=== PATIENT | female | born 1980 | race American Indian/Alaskan Native ===

== ENCOUNTER 2018-08-17 12:28 | Emergency (ER) | payer OTHER ==
--- NOTE | 2018-08-17 13:03 | Emergency Department Report ---
Chief Complaint: Chest Pain Stated Complaint: CHEST PAIN/TROY Time Seen by Provider: 08/17/18 12:59 - HPI History of Present Illness: pt presents with left sided CP under the left breast that began a week ago states it is a intermittent sharp pain (+) SOB and cough no N/V recent long trip for 9 hours PMHx hypothyroid, pseudotumor cerebri, HLD hx of rheumatic fever as a child hx of grandmother hx of CAD MSE screening note: Focused history and physical exam performed. Due to findings the following was ordered: CXR, EKG, labs ED Disposition for MSE Condition: Stable
[2018-08-17 13:28] LABS: Basophils % (Auto) 0.7 % (0.0-1.8); Eosinophils # (Auto) 0.3 K/mm3 (0.0-0.4); Eosinophils % (Auto) 5.4 % (0.0-4.3); Hematocrit 37.3 % (30.3-42.9); Hemoglobin 12.7 gm/dl (10.1-14.3); Lymphocytes # (Auto) 2.1 K/mm3 (1.2-5.4); Lymphocytes % (Auto) 35.7 % (13.4-35.0); Mean Corpuscular HGB Conc 34 % (30-34); Mean Corpuscular Volume 88 fl (79-97); Monocytes # (Auto) 0.4 K/mm3 (0.0-0.8); Platelet Count 258 K/mm3 (140-440); Red Blood Count 4.26 M/mm3 (3.65-5.03); Red Cell Distribution Width 14.9 % (13.2-15.2)
[2018-08-17 13:42] LABS: INR 1.02 (0.87-1.13)
[2018-08-17 13:43] LABS: Partial Thromboplastin Time 28.7 Sec. (24.2-36.6)
[2018-08-17 13:53] LABS: Alanine Aminotransferase 15 units/L (7-56); Albumin 3.7 g/dL (3.9-5); BUN/Creatinine Ratio 18; Blood Urea Nitrogen 11 mg/dL (7-17); Calcium 8.7 mg/dL (8.4-10.2); Hemolysis Index 7
--- NOTE | 2018-08-17 14:00 | Emergency Department Report ---
HPI - General Chief Complaint: Chest Pain Time Seen by Provider: 08/17/18 12:59 - HPI HPI: 38 y.o male with chest pain on and off for the past two days. no n/v. no sob, chills or night sweats. has not taken any meds for symptoms. denies any alleviating or exacerbating factors. ED Past Medical Hx - Past Medical History Additional medical history: hypothyroidism, elevated cholesterol,psuedo tumor - Surgical History Past Surgical History?: No - Social History Smoking Status: Never Smoker Substance Use Type: None - Medications Home Medications: Home Medications Medication Instructions Recorded Confirmed Last Taken Type Aspirin 81 mg PO DAILY #30 tab.chew 08/17/18 Unknown Rx Pantoprazole [Protonix] 40 mg PO QDAY #30 tablet 08/17/18 Unknown Rx ED Review of Systems ROS: Stated complaint: CHEST PAIN/TROY Other details as noted in HPI Comment: All other systems reviewed and negative Eyes: denies: eye pain ENT: denies: ear pain Respiratory: denies: cough Cardiovascular: chest pain. denies: palpitations, dyspnea on exertion Gastrointestinal: denies: abdominal pain, nausea, vomiting Physical Exam - Physical Exam Vital Signs: Vital Signs 08/17/18 13:00 Temperature 97.9 F Pulse Rate 81 Respiratory 18 Rate Blood Pressure 135/67 O2 Sat by Pulse 100 Oximetry Physical Exam: ED Physical Exam - General Limitations: No Limitations General appearance: alert, in no apparent distress - Head Head exam: Present: atraumatic, normocephalic - Eye Eye exam: Present: normal appearance - ENT ENT exam: Present: mucous membranes moist - Neck Neck exam: Present: normal inspection - Respiratory Respiratory exam: Present: normal lung sounds bilaterally. Absent: respiratory distress - Cardiovascular Cardiovascular Exam: Present: regular rate, normal rhythm. Absent: systolic murmur, diastolic murmur, rubs, gallop - GI/Abdominal GI/Abdominal exam: Present: soft, normal bowel sounds. Absent: tenderness, rebound, bruit, hernia - Rectal Rectal exam: Present: deferred - Extremities Exam Extremities exam: Present: normal inspection, full ROM - Back Exam Back exam: Present: normal inspection, full ROM. Absent: tenderness, CVA tenderness (R), CVA tenderness (L), muscle spasm, paraspinal tenderness, vertebral tenderness, rash noted - Neurological Exam Neurological exam: Present: alert, oriented X3, CN II-XII intact, normal gait, reflexes normal - Psychiatric Psychiatric exam: Present: normal affect, normal mood - Skin Skin exam: Present: warm, dry, intact, normal color. Absent: rash ED Course Vital Signs 08/17/18 13:00 Temperature 97.9 F Pulse Rate 81 Respiratory 18 Rate Blood Pressure 135/67 O2 Sat by Pulse 100 Oximetry ED Medical Decision Making - Lab Data Result diagrams: 08/17/18 13:15 08/17/18 13:15 Critical care attestation.: If time is entered above; I have spent that time in minutes in the direct care of this critically ill patient, excluding procedure time. ED Disposition Clinical Impression: Chest pain Qualifiers: Chest pain type: unspecified Qualified Code(s): R07.9 - Chest pain, unspecified Disposition: DC- TO HOME OR SELFCARE Is pt being admited?: No Does the pt Need Aspirin: No Condition: Stable Instructions: Chest Pain (ED) Prescriptions: Aspirin 81 mg PO DAILY #30 tab.chew Pantoprazole [Protonix] 40 mg PO QDAY #30 tablet Referrals: BEATRIZ OWUSU MD [Staff Physician] - 3-5 Days [place] KETURAH KARIMI MD [Primary Care Provider] - 3-5 Days
--- NOTE | 2018-08-17 15:14 | XRay Report ---
ROUTINE CHEST, TWO VIEWS: HISTORY: chest pain. The trachea, heart, mediastinal contour, lung woody and bony thorax are unremarkable. IMPRESSION: Unremarkable chest x-ray.
--- NOTE | 2018-08-17 16:43 | Cat Scan Report ---
PROCEDURE: CT angiogram chest with contrast. TECHNIQUE: Computerized tomographic angiography of the chest was performed after the IV injection of iodinated nonionic contrast including image processing. The image data was postprocessed using 2-di mensional multiplanar reformatted (MPR) and 3-dimensional (MIP and/or volume rendered) techniques. Au tomated exposure control, adjustment of mA and/or kV according to patient size, or iterative reconstr uction dose optimization techniques were utilized. CT DOSE LENGTH PRODUCT: 946.30 mGycm HISTORY: Chest pain, elevated d-dimer. COMPARISONS: None. FINDINGS: The trachea and central bronchi appear normal. The lungs are clear and well expanded. There are no pl eural effusions. The thoracic aorta has a normal caliber without evidence of dissection. The pulmonar y arteries enhance normally. There are no filling defects to indicate pulmonary embolism. There is no mediastinal adenopathy. The heart size is normal. The thoracic skeleton appears intact. IMPRESSION: Normal study. This document is electronically signed by Billy Caraballo MD., August 17 2018 04:41:39 PM ET
[2018-08-18 19:02] VITALS: BP 135/67
== END 2018-08-17 17:05 | disposition home or self-care (01) ==
LOC: ED 12:28
DX: R07.89 Other chest pain (principal); E78.00 Pure hypercholesterolemia, unspecified; E03.9 Hypothyroidism, unspecified
CPT/HCPCS: 36415; 71046; 71275; 80053; 84484; 84703; 85025; 85379; 85610; 85730; 93005; 93010; 99284; Q9967

== ENCOUNTER 2018-11-26 23:51 | Emergency (ER) | payer MEDICAID, OTHER ==
[2018-11-27 00:05] VITALS: BP 129/69
[2018-11-27] MEDS ORDERED: NACL 0.9% 1000 ML 1,000 ML IV ONE (01:15)
[2018-11-27] MEDS ORDERED: ZOFRAN IV ONE (01:15)
[2018-11-27] MEDS ORDERED: MORPHINE IV ONE (01:15)
[2018-11-27 01:41] LABS: Basophils % (Auto) 0.8 % (0.0-1.8); Eosinophils # (Auto) 0.5 K/mm3 (0.0-0.4); Eosinophils % (Auto) 7.9 % (0.0-4.3); Hematocrit 38.7 % (30.3-42.9); Hemoglobin 12.9 gm/dl (10.1-14.3); Lymphocytes % (Auto) 31.4 % (13.4-35.0); Mean Corpuscular HGB Conc 33 % (30-34); Mean Corpuscular Volume 89 fl (79-97); Monocytes # (Auto) 0.5 K/mm3 (0.0-0.8); Monocytes % (Auto) 8.4 % (0.0-7.3); Platelet Count 243 K/mm3 (140-440); Red Blood Count 4.35 M/mm3 (3.65-5.03); Red Cell Distribution Width 14.9 % (13.2-15.2)
[2018-11-27 02:04] LABS: Alanine Aminotransferase 13 units/L (7-56); Albumin 3.8 g/dL (3.9-5); Bilirubin,Direct 0.2 mg/dL (0-0.2); Calcium 8.9 mg/dL (8.4-10.2); Hemolysis Index 7
[2018-11-27 02:23] LABS: BUN/Creatinine Ratio 16; Blood Urea Nitrogen 11 mg/dL (7-17)
--- NOTE | 2018-11-27 02:28 | XRay Report ---
LEFT SHOULDER 3 VIEWS INDICATION / CLINICAL INFORMATION: Left shoulder pain. COMPARISON: None available. FINDINGS: BONES and JOINT(S): No acute fracture or subluxation. No significant arthritis. SOFT TISSUES: No significant abnormality. ADDITIONAL FINDINGS: None. IMPRESSION: No acute findings. Signer Name: Ignacio Petit MD Signed: 11/27/2018 2:24 AM Workstation Name: [id number]
--- NOTE | 2018-11-27 03:01 | Emergency Department Report ---
ED General Adult HPI - General Chief complaint: Pain General Stated complaint: PAIN IN LT ROTATOR CUFF HEAD PAIN NVF Time Seen by Provider: 11/27/18 00:33 Source: patient Mode of arrival: Ambulatory Limitations: No Limitations - History of Present Illness Initial comments: This is a 38-year-old female nontoxic, well nourished in appearance, no acute signs of distress presents to the ED with c/o of acute headache, nausea, vomiting, left shoulder pain, and generalized body aches. Patient denies any cough. Staetd has nasal congestion. Patient describes headache as diffuse with level of 3 out of 10. Patient denies thunderclap headache. Patient denies any radiation of pain. Patient denies any head trauma. Patient denies any visual changes. Patient denies worse headache. Patient describes vomiting as food content. Patient denies any diarrhea or constipation. Patient denies any numbness, tingling, fever, chills, abdominal pain, chest pain, shortness of breath, stiff neck. Patient denies facial drooping or one sided weakness. Denies any urinary symptoms. Patient denies any radiation of pain. Patient denies any allergies. Patient stated has history of RA. -: days(s) Location: head, upper extremity Radiation: non-radiation Severity scale (0 -10): 8 Quality: aching Consistency: constant Improves with: none Worsens with: none Associated Symptoms: headaches, nausea/vomiting. denies: confusion, chest pain, cough, diaphoresis, fever/chills, loss of appetite, malaise, rash, seizure, shortness of breath, syncope, weakness Treatments Prior to Arrival: none - Related Data Previous Rx's Medication Instructions Recorded Last Taken Type Aspirin 81 mg PO DAILY #30 tab.chew 08/17/18 Unknown Rx Pantoprazole [Protonix] 40 mg PO QDAY #30 tablet 08/17/18 Unknown Rx Acetaminophen/Codeine [Tylenol 1 tab PO Q6H PRN #12 tab 11/27/18 Unknown Rx /Codeine # 3 tab] Amoxicillin/K Clav Tab [Augmentin 1 tab PO Q12HR #20 tab 11/27/18 Unknown Rx 875 mg] Ondansetron [Zofran Odt] 4 mg PO Q8HR PRN #20 tab.rapdis 11/27/18 Unknown Rx Allergies Allergy/AdvReac Type Severity Reaction Status Date / Time No Known Allergies Allergy Unverified 11/27/18 00:05 ED Review of Systems ROS: Stated complaint: PAIN IN LT ROTATOR CUFF HEAD PAIN NVF Other details as noted in HPI Constitutional: denies: chills, fever Eyes: denies: eye pain, eye discharge, vision change ENT: denies: ear pain, throat pain Respiratory: denies: cough, shortness of breath, wheezing Cardiovascular: denies: chest pain, palpitations Endocrine: no symptoms reported Gastrointestinal: nausea, vomiting. denies: abdominal pain, diarrhea Genitourinary: denies: urgency, dysuria, discharge Musculoskeletal: arthralgia. denies: back pain, joint swelling Skin: denies: rash, lesions Neurological: headache. denies: weakness, paresthesias Psychiatric: denies: anxiety, depression Hematological/Lymphatic: denies: easy bleeding, easy bruising ED Past Medical Hx - Past Medical History Previous Medical History?: Yes Additional medical history: hypothyroidism, elevated cholesterol,psuedo tumor - Surgical History Past Surgical History?: No - Social History Smoking Status: Never Smoker Substance Use Type: None - Medications Home Medications: Home Medications Medication Instructions Recorded Confirmed Last Taken Type Aspirin 81 mg PO DAILY #30 tab.chew 08/17/18 Unknown Rx Pantoprazole [Protonix] 40 mg PO QDAY #30 tablet 08/17/18 Unknown Rx Acetaminophen/Codeine [Tylenol 1 tab PO Q6H PRN #12 tab 11/27/18 Unknown Rx /Codeine # 3 tab] Amoxicillin/K Clav Tab [Augmentin 1 tab PO Q12HR #20 tab 11/27/18 Unknown Rx 875 mg] Ondansetron [Zofran Odt] 4 mg PO Q8HR PRN #20 tab.rapdis 11/27/18 Unknown Rx ED Physical Exam - General Limitations: No Limitations General appearance: alert, in no apparent distress - Head Head exam: Present: atraumatic, normocephalic - Eye Eye exam: Present: normal appearance - Neck Neck exam: Present: normal inspection, full ROM. Absent: tenderness, menin gismus, lymphadenopathy - Respiratory Respiratory exam: Present: normal lung sounds bilaterally. Absent: respiratory distress, wheezes, rales, rhonchi, stridor, chest wall tenderness, accessory muscle use, decreased breath sounds, prolonged expiratory - Cardiovascular Cardiovascular Exam: Present: regular rate, normal rhythm, normal heart sounds. Absent: bradycardia, tachycardia, irregular rhythm, systolic murmur, diastolic murmur, rubs, gallop - GI/Abdominal GI/Abdominal exam: Present: soft, normal bowel sounds. Absent: distended, tenderness, guarding, rebound, rigid, diminished bowel sounds - Extremities Exam Extremities exam: Present: normal inspection, full ROM, normal capillary refill. Absent: tenderness - Expanded Upper Extremity Exam Left General: Present: normal inspection Shoulder Exam: Present: normal inspection, full ROM. Absent: tenderness, swelling, abrasion, laceration, ecchymosis, deformity, crepidus, dislocation, erythema, tenderness over AC joint Upper Arm exam: Present: normal inspection, full ROM. Absent: tenderness, swelling Elbow exam: Present: normal inspection, full ROM. Absent: tenderness, swelling Forearm Wrist exam: Present: normal inspection, full ROM. Absent: tenderness, swelling Hand Wrist exam: Present: normal inspection, full ROM. Absent: tenderness, swelling Vascular: Present: vascular compromise, normal capillary refill - Back Exam Back exam: Present: normal inspection, full ROM. Absent: tenderness, CVA tenderness (R), CVA tenderness (L), muscle spasm, paraspinal tenderness, vertebral tenderness, rash noted - Neurological Exam Neurological exam: Present: alert, oriented X3, normal gait - Expanded Neurological Exam Expanded Patient oriented to: Present: person, place, time Cranial nerves: EOM's Intact: Normal, Facial Sensation: Normal Upper motor neuron: Sensory Extinction: Normal Motor strength exam: RUE: 5, LUE: 5, RLE: 5, LLE: 5 Best Eye Response ([place]): (4) open spontaneously Best Motor Response ([place]): (6) obeys commands Best Verbal Response ([place]): (5) oriented [place] Total: 15 - Psychiatric Psychiatric exam: Present: normal affect, normal mood - Skin Skin exam: Present: warm, dry, intact, normal color. Absent: rash - Other Other exam information: Positive frontal sinus tenderness. ED Course Vital Signs 11/27/18 00:03 Temperature 98.6 F Pulse Rate 79 Respiratory 16 Rate Blood Pressure 129/69 O2 Sat by Pulse 100 Oximetry - Reevaluation(s) Reevaluation #1: 11/27/18 03:07 Patient is speaking in full sentences with no signs of distress noted. ED Medical Decision Making - Lab Data Result diagrams: 11/27/18 01:09 11/27/18 01:27 - Medical Decision Making This is a 38-year-old female that presents with sinusitis, n/v, generlized, body aches from RA flareup, and left shoulder strain. Patient is stable and was examined by me. There is no abdominal tenderness. Negative signs of symptoms of appendicitis. Labs obtained. UA obtained. CT of abdomen and head/brain obtained and dictated by the radiologist and dictated by the radiologist within normal limits. Xray of left shoulder obainted and dictated by the radiologist within normal limits. Patient is notified of the report with no questions noted by the patient. Vital signs are stable prior to discharge. Patient received medical treatment in the ED which patient stated symptoms has resovled and subsided. Was instructed note to operate any machinery due to possible drowsiness and stated someone will drive the patient home. A by mouth challenge has been obtained and patient tolerated well with no nausea vomiting. Patient was also instructed to Follow-up with a primary care doctor in 3-5 days or if symptoms worsen and continue return to emergency room as soon as possible. At time of discharge, the patient does not seem toxic or ill in appearance. No acute signs of distress noted. Patient agrees to discharge treatment plan of care. No further questions noted by the patient. Critical care attestation.: If time is entered above; I have spent that time in minutes in the direct care of this critically ill patient, excluding procedure time. ED Disposition Clinical Impression: Generalized body aches Headache Qualifiers: Headache type: unspecified Headache chronicity pattern: acute headache Intractability: not intractable Qualified Code(s): R51 - Headache Left shoulder strain Qualifiers: Encounter type: initial encounter Qualified Code(s): S46.912A - Strain of unspecified muscle, fascia and tendon at shoulder and upper arm level, left arm, initial encounter Nausea & vomiting Qualifiers: Vomiting type: unspecified Vomiting Intractability: non-intractable Qualified C ode(s): R11.2 - Nausea with vomiting, unspecified Sinusitis Qualifiers: Sinusitis location: unspecified location Chronicity: acute Recurrence: non- recurrent Qualified Code(s): J01.90 - Acute sinusitis, unspecified Disposition: TO HOME OR SELFCARE Is pt being admited?: No Does the pt Need Aspirin: No Condition: Stable Instructions: Acetaminophen/Codeine (By mouth), Acute Headache (ED), Acute Nausea and Vomiting (ED), Sinusitis (ED) Additional Instructions: Follow-up with a primary care doctor in 3-5 days or if symptoms worsen and continue return to emergency room as soon as possible. Do not operate any machinery while taking Tylenol with codeine as this may cause drowsiness. Prescriptions: Amoxicillin/K Clav Tab [Augmentin 875 mg] 1 tab PO Q12HR #20 tab Acetaminophen/Codeine [Tylenol /Codeine # 3 tab] 1 tab PO Q6H PRN #12 tab PRN Reason: Pain , Severe (7-10) Ondansetron [Zofran Odt] 4 mg PO Q8HR PRN #20 tab.rapdis PRN Reason: Nausea Referrals: MEG GONZALEZ MD [Primary Care Provider] - 3-5 Days PRIMARY CAREMD [Referring] - 3-5 Days DARIN SIMON MD [Staff Physician] - 3-5 Days [facility] [place] [Outside] - 3-5 Days [facility] [Outside] - 3-5 Days Forms: Work/School Release Form(ED)
--- NOTE | 2018-11-27 03:45 | Cat Scan Report ---
CT HEAD WITHOUT CONTRAST INDICATION : Headache since Friday with congestion. TECHNIQUE: Axial, coronal and sagittal CT imaging was performed from the skull apex through the skul l base without contrast. All CT scans at this location are performed using CT dose reduction for ALA RA by means of automated exposure control. COMPARISON: None available. FINDINGS: PARENCHYMA: No mass, midline shift, hemorrhage, extraaxial collection or acute territorial infarctio n. VENTRICLES: Symmetric and normal in size. SOFT TISSUES: Soft tissues including the orbits appear normal. BONES: No acute osseous abnormality. SINUSES: There is mild to moderate mucosal thickening along the ethmoid air cells with a small air-fl uid level in the right maxillary sinus. The sinuses are otherwise clear. The mastoid air cells are pa tent. ADDITIONAL FINDINGS: None. IMPRESSION: 1. No acute intracranial abnormality. 2. Sinusitis as above. Signer Name: Ignacio Petit MD Signed: 11/27/2018 3:41 AM Workstation Name: [id number]
--- NOTE | 2018-11-27 04:03 | Cat Scan Report ---
CT ABDOMEN AND PELVIS WITH CONTRAST HISTORY: Nausea with vomiting. COMPARISON: No relevant prior imaging study available. TECHNIQUE: Axial, coronal and sagittal CT imaging of the abdomen and pelvis was performed after inje ction of 100 cc Omnipaque [address] scans at this location are performed using CT dose re duction for ALARA by means of automated exposure control. FINDINGS: LOWER CHEST: No significant abnormality. LIVER: No significant abnormality. BILIARY: No significant abnormality. PANCREAS: No significant abnormality. SPLEEN: No significant abnormality. ADRENALS: No significant abnormality. KIDNEYS AND URETERS: No significant abnormality. GI TRACT: No significant abnormality of the stomach, small bowel or colon. The appendix is not well- visualized. PERITONEUM: No free fluid. No free air. No fluid collection. LYMPH NODES: No significant adenopathy. VASCULATURE: No significant abnormality. URINARY BLADDER: No significant abnormality. REPRODUCTIVE ORGANS: No significant abnormality. ADDITIONAL FINDINGS: None. SKELETAL SYSTEM: No acute abnormality. There are mild degenerative changes of the spine. IMPRESSION: No acute abnormality of the abdomen or pelvis. Signer Name: Ignacio Petit MD Signed: 11/27/2018 3:59 AM Workstation Name: [id number]
== END 2018-11-27 05:15 | disposition home or self-care (01) ==
LOC: ED 23:51
DX: S46.912A Strain of unspecified muscle, fascia and tendon at shoulder and upper arm level, left arm, initial encounter (principal); R51 Headache; R11.2 Nausea with vomiting, unspecified; M79.18 Myalgia, other site; R10.9 Unspecified abdominal pain; J01.90 Acute sinusitis, unspecified; E03.9 Hypothyroidism, unspecified; X58.XXXA Exposure to other specified factors, initial encounter; Y93.89 Activity, other specified; Y92.89 Other specified places as the place of occurrence of the external cause; Y99.8 Other external cause status
CPT/HCPCS: 36415; 70450; 73030; 74177; 80048; 80076; 83690; 84703; 85025; 96361; 96374; 96375; 99284; J2270; J2405; J7030; Q9967